=== PATIENT | female | born 2000 | race Two or more races ===

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

== ENCOUNTER 2020-10-11 02:22 | Emergency (ER) | payer SELFPAY ==
[~2020-10-11] VITALS: Ht 144.8 cm; Wt 36.8 kg
[~2020-10-11 02:22] MED LIST changes: +IBUP-1027 PO
[2020-10-11 02:47] VITALS: BP 128/80
--- NOTE | 2020-10-11 02:52 | PHYS DOC ---
Past Medical History Past Medical History: No Pertinent History Past Surgical History: No Surgical History Smoking Status: Never Smoker Alcohol Use: None Drug Use: None General Adult EDM: Chief Complaint: DYSPNEA/RESPIRATORY DISTRESS HPI: HPI: Patient is a 20 year old [f__sex] who presents with [] Review of Systems: Review of Systems: Constitutional: Denies fever or chills. [] Eyes: Denies change in visual acuity. [] HENT: Denies nasal congestion or sore throat. [] Respiratory: Denies cough or shortness of breath. [] Cardiovascular: Denies chest pain or edema. [] GI: Denies abdominal pain, nausea, vomiting, bloody stools or diarrhea. [] : Denies dysuria. [] Musculoskeletal: Denies back pain or joint pain. [] Integument: Denies rash. [] Neurologic: Denies headache, focal weakness or sensory changes. [] Endocrine: Denies polyuria or polydipsia. [] Lymphatic: Denies swollen glands. [] Psychiatric: Denies depression or anxiety. [] Heart Score: Risk Factors: Risk Factors: DM, Current or recent (<one month) smoker, HTN, HLP, family history of CAD, obesity. Risk Scores: Score 0 - 3: 2.5% MACE over next 6 weeks - Discharge Home Score 4 - 6: 20.3% MACE over next 6 weeks - Admit for Clinical Observation Score 7 - 10: 72.7% MACE over next 6 weeks - Early Invasive Strategies Allergies: Allergies: Allergies Coded Allergies Type Severity Reaction Last Updated Verified pregabalin Allergy Intermediate Itching 01/29/15 Yes Physical Exam: PE: Constitutional: Well developed, well nourished, no acute distress, non-toxic appearance. [] HENT: Normocephalic, atraumatic, bilateral external ears normal, oropharynx moist, no oral exudates, nose normal. [] Eyes: PERRLA, EOMI, conjunctiva normal, no discharge. [] Neck: Normal range of motion, no tenderness, supple, no stridor. [] Cardiovascular:Heart rate regular rhythm, no murmur [] Lungs & Thorax: Bilateral breath sounds clear to auscultation [] Abdomen: Bowel sounds normal, soft, no tenderness, no masses, no pulsatile masses. [] Skin: Warm, dry, no erythema, no rash. [] Back: No tenderness, no CVA tenderness. [] Extremities: No tenderness, no cyanosis, no clubbing, ROM intact, no edema. [] Neurologic: Alert and oriented X 3, normal motor function, normal sensory function, no focal deficits noted. [] Psychologic: Affect normal, judgement normal, mood normal. [] EKG: EKG: [] Radiology/Procedures: Radiology/Procedures: [] Course & Med Decision Making: Course & Med Decision Making Pertinent Labs and Imaging studies reviewed. (See chart for details) [] Dragon Disclaimer: Dragon Disclaimer: This electronic medical record was generated, in whole or in part, using a voice recognition dictation system. Departure Departure Impression: Primary Impression: Insomnia Qualified Codes: G47.00 - Insomnia, unspecified Additional Impression: Throat dryness Disposition: HOME / SELF CARE / HOMELESS Condition: STABLE Referrals: SIVAKUMAR NEWELL MD (PCP) Patient Instructions: Insomnia Additional Instructions: Use a bedside humidifier to help add extra moisture in the air. You may also use a throat lozenge such as "[place] [employer]" for your dry throat. Please follow-up with your family physician regarding further evaluation of your problems with your sleep such as a "sleep study". BARBER GREGORY DO Oct 11, 2020 02:52
[2020-10-11] MEDS ORDERED: DEXAMETHASONE 4 MG TABLET PO ONE (03:00)
== END 2020-10-11 03:11 | disposition home or self-care (01) ==
LOC: ER 02:22
DX: J39.2 Other diseases of pharynx (principal); G47.00 Insomnia, unspecified
CPT/HCPCS: 99283

== ENCOUNTER 2020-12-31 06:37 | Emergency (ER) | payer SELFPAY | END 2020-12-31 07:35 | disposition left against medical advice (07) | LOC: ER 06:37 | DX: Z53.21 Procedure and treatment not carried out due to patient leaving prior to being seen by health care provider (principal) ==